=== PATIENT | female | born 1950 | race Caucasian/White ===

== ENCOUNTER 2018-09-12 05:23 | Inpatient (IN) ==
--- NOTE | 2018-08-24 13:38 | PAT Medication Instructions ---
Medication Instructions Date of Service August 24, 2018 Home Medications albuterol sulfate 2 puff INHALATION Q6H NEEDED aspirin [Aspir-81] 81 mg PO QPM lisinopril 10 mg PO BID rosuvastatin 20 mg PO HS ASK your surgeon for instructions aspirin [Aspir-81] 81 mg PO QPM DO NOT take the morning of surgery lisinopril 10 mg PO BID Take morning of surgery With a small sip of water, OTHERWISE NOTHING TO EAT OR DRINK AFTER MIDNIGHT: albuterol sulfate 2 puff INHALATION Q6H NEEDED (if needed; please bring to the hospital) Take evening before surgery albuterol sulfate 2 puff INHALATION Q6H NEEDED (if needed) lisinopril 10 mg PO BID rosuvastatin 20 mg PO HS Other Notes If you have any questions please call us at [phone] or [phone] or [phone] or [phone]
--- NOTE | 2018-08-24 13:39 | Anesthesiology Consultation ---
Date of Service August 24, 2018 Assessment & Plan (1) Encounter for pre-operative examination: - No previous anesthesia records Chart Review Chart Review: Acceptable Risk for Surgery and Patient seen in Pre Admission Testing Consults Requested cardiac (Dr. Rosario (08/23) - awaiting DSE and Echo to be scheduled) Patient was seen by cardiology and on 09/06 a letter was provided by Dr. Abraham martinez ndicating that patient is at low risk for surgery and cardiac monitoring is required for 2 hours postop. Beta blockers are to be continued during perioperative period. Teaching & Discussion Pre-Anesthesia Teaching/Discussion Notes: Instructed NPO after midnight before surgery, except medications with 15 cc of water. Medication instructions provi ded according to the PAT guidelines. History Surgery Operation Date: 09/12/18 07:15 Proposed Procedures p Right Carotid Endarterectomy - Sam Her MD Height/Weight Height: 5 ft 1 in Weight: 61.9 kg Allergies Allergy/AdvReac Type Severity Reaction Status Date / Time No Known Allergies Allergy Verified 08/22/18 14:16 Medications Home Medications Medication Instructions Recorded Confirmed Last Taken albuterol sulfate 2 puff INHALATION Q6H PRN 08/22/18 08/22/18 Unknown aspirin [Aspir-81] 81 mg PO QPM 08/22/18 08/22/18 Unknown lisinopril 10 mg PO BID 08/22/18 08/22/18 Unknown rosuvastatin 20 mg PO HS 08/22/18 08/22/18 Unknown Past Medical History Medical History Arthritis Asthma INHALER PRN Hyperlipidemia Hypertension Myocardial Infarction 1982 Exercise / Class Metabolic Activity II 4-5 Yardwork/Stairs/Walk up hill (Able to climb FOS several times per day. Housework. Denies CP or SOB. ) Past Family History Family History Mother Family history of esophageal cancer Past Surgical History Surgical History History of appendectomy Age 11 History of cardiac cath 1 STENT STENT 2016 AT [facility] History of colonoscopy Past Anesthesia History No Hx of Anesthesia Complications and No Family Hx of Anesthesia Complications History of PONV No Hx of PONV and No Hx of Motion Sickness Social History Smoking Status: Current every day smoker tobacco type: cigarettes Smoking cigarettes per day: 10 CIGS A DAY X 45+ YRS Do You Dip or Chew Tobacco: No Hx Alcohol Use: No Hx Substance Use: No Review of Systems Patient denies chest pain, shortness of breath, dyspnea on exertion, joint pain, reflux, cough, wheezing, palpitations. Physical Exam Vital Signs BP: 180/78 P: 57 R: 16 T: 98.1 SPO2: 97% on RA ENMT Mouth: + dentures (Full upper plate) and + poor dentition Thyromental Distance: > or= 3.5 Finger Breadths (3.5) Mallampati Class: II Neck normal visual inspection and trachea midline; neck extension not limited Respiratory normal respiratory effort Auscultation: lungs clear to auscultation bilaterally Cardiovascular Rate/Rhythm: regular rate and regular rhythm Heart Sounds: + murmur (2/6) Vessels: + carotid bruit Neurologic moves all extremities Psychiatric Orientation: alert and oriented x 3 Testing Laboratory Results 08/24/18 14:05 08/24/18 14:05 PT 11.0 Seconds (9.0-12.0) 08/24/18 14:05 INR 1.1 (0.9-1.1) 08/24/18 14:05 APTT 26.0 Seconds (21.0-31.0) 08/24/18 14:05 Blood Type A Positive 08/24/18 14:05 Antibody Screen NEGATIVE 08/24/18 14:05 Electrocardiogram Date: 08/23/18 Findings: + NSR @ (65) and + LBBB Marked high lateral repolarization disturbance secondary to LBBB. (Patient scheduled for Stress Test and ECHO) Chest X-Ray Date: 08/24/18 Findings: + NAD FINDINGS: Atherosclerosis of the aortic arch. Cardiac silhouette normal in size. Lungs and pleural spaces clear. Degenerative changes of the thoracic spine. Upper abdomen normal. IMPRESSION: 1. No acute cardiopulmonary disease. Echocardiogram Date: 09/03/18 EF: 55% Normal EF. There is mild to moderate concentric hypertrophy. Normal right ventricular size with normal function. Mildly dilated left atrium. Normal right atrium. Trileaflet aortic valve. There is no aortic regurgitation and moderate aortic stenosis. The aortic valve is calcified. There is mild mitral regurgitation. The mitral valve is thickened. There is trace tricuspid regurgitation. Normal PA pressure. There is physiologic pulmonic regurgitation. Normal aorta. Stress Test Date: 09/03/18 Type: nuclear (Lexiscan) Resting EF: 49% Breast attenuation shadow. Good quality study. Normal gated MPI, wall motion, and low normal EF. Small in size, mild intensity, fixed anterior MPI defect. Most suggestive of breast attenuation but a small anterior infarct cannot be excluded. No evidence of ischemia. Low risk study. Study is improved compared to prior study dated 07/24/15. Lexiscan stress ECG was uninterpretable for myocardial ischemia due to LBBB at baseline Nausea, headache noted during infusion. HTN at baseline. Cardiac Catheterization Date: 09/07/15 Findings: + normal Intervention: + none Summary: 1. Angiographically mild to moderate one vessel occlusive coronary artery disease 2. Patient stent in right coronary artery 3. Mildly reduced left ventricular systolic function 4. Normal LVEDP. Plan: Given present coronary anatomy patient should be managed medically aggressive lucina factor modification should be maintained and close clinical followup should be done. Pulmonary Function Test Date: 03/23/18 Findings: + FEV1 pre (1.72), + FEV1 post (1.80) and + DLCO (11.4) There is minimal obstructive lung defect. The airway obstruction is confirmed by the decrease in flow rate at peak flow and flow at 25%, 50%, and 75% of the flow volume curve. An obstructive lung defect is confirmed by an increased RV. There is a mild decrease in diffusing capacity. FEF 25-75 change by 22%. This is interpreted as a mild response to bronchodilator.
--- NOTE | 2018-08-24 14:49 | XRay Report ---
XR chest Pre-admission PA/Lat CLINICAL HISTORY: 67 years-old Female presenting with preoperative assessment. TECHNIQUE: PA and lateral views of the chest were obtained. COMPARISON: None. FINDINGS: Atherosclerosis of the aortic arch. Cardiac silhouette normal in size. Lungs and pleural spaces clear . Degenerative changes of the thoracic spine. Upper abdomen normal. IMPRESSION: 1. No acute cardiopulmonary disease. Electronically signed by: Rashad Waldrop M.D. 08/24/2018 2:48 PM
[2018-08-24 14:50] LABS: Basophils # (auto) 0.07 K/uL (0-0.2); Basophils % (auto) 0.7 %; Eosinophils # (auto) 0.47 K/uL (0-0.5); Hematocrit (blood only) 38.9 % (37-47); Hemoglobin 12.9 g/dL (12.0-16.0); Immature Granulocytes # (auto) 0.03 K/uL (0.00-0.02); Immature Granulocytes % (auto) 0.3 %; Lymphocytes # (auto) 2.41 K/uL (1.2-3.4); Lymphocytes % (auto) 25.5 %; Mean Corpuscular Hgb Conc 33.2 g/dL (32-36); Mean Corpuscular Volume 83.7 fL (80-100); Mean Platelet Volume 10.9 fL (7.4-10.4); Monocytes # (auto) 0.54 K/uL (0.11-0.59); Monocytes % (auto) 5.7 %; Neutrophils # (auto) 5.93 K/uL (1.4-6.5); Neutrophils % (auto) 62.8 %; Platelet Count 245 K/uL (130-400); RDW Coefficient of Variation 15.1 % (11.5-14.5); RDW Standard Deviation 46.4 fL (36.4-46.3); Red Blood Count 4.65 M/uL (4.2-5.4); White Blood Count 9.45 K/uL (4.8-10.8)
[2018-08-24 14:57] LABS: BUN Creatinine Ratio 16.5 (10-20); Calcium 9.3 mg/dl (8.5-10.1); Creatinine Clr Calc Pharmacy 67.7 ml/min; Est GFR (African American) 105.1; Est GFR (Non-African American) 90.7; Potassium 4.3 mmol/L (3.5-5.1)
[2018-08-24 15:05] LABS: INR 1.1 (0.9-1.1)
[2018-09-12] MEDS ORDERED: SODIUM CHLORIDE 0.9% 1000ML 1,000 ML IV SCH (06:00)
[2018-09-12] MEDS ORDERED: SODIUM CHLORIDE 0.9% 1000ML IV SCH (06:00)
[2018-09-12] MEDS ORDERED: LR 15ML/HR IV SCH (06:00)
--- NOTE | 2018-09-12 06:17 | History & Physical Report ---
Date of Service September 12, 2018 Assessment & Plan (1) Stenosis of right internal carotid artery: Patient is admitted for a right carotid endarterectomy. I have discussed the risks options and benefits of the procedure with the patient. The patient understands the risks options and benefits and agrees to the procedure. History of Present Illness Chief Complaint: Right internal carotid artery stenosis Primary Care Provider: Kaleb Miller Ms. Link is a very pleasant, 67-year-old female who presented to your office with bilateral carotid bruits that have been asymptomatic. She underwent a bilateral carotid ultrasound, which showed stenosis of greater than 70% and left-sided carotid stenosis between 50 and 70%. At this point, she has been otherwise asymptomatic and denies any symptoms of memory loss, trouble with her speech, bilateral extremity weakness or unilateral extremity weakness, and no changes in her vision. She has had no balance issues or dizziness and has no unexplained headaches that have been happening recently. She states that she has otherwise been able to perform all her activities of daily life without limi tation and she is able to walk up a flight of stairs and throughout the grocery store without any claudication symptoms or leg pain. She describes no rest pain or tingling sensation in her legs at baseline. . Her CTA does verify 90% stenosis of her right internal carotid artery and 60-70% stenosis of her left. Allergies Allergy/AdvReac Type Severity Reaction Status Date / Time No Known Allergies Allergy Verified 09/12/18 05:45 Home Medications Home Medications Medication Instructions Recorded Confirmed Type albuterol sulfate 2 puff INHALATION Q6H PRN 08/22/18 09/12/18 History aspirin [Aspir-81] 81 mg PO QPM 08/22/18 09/12/18 History lisinopril 10 mg PO BID 08/22/18 09/12/18 History rosuvastatin 20 mg PO HS 08/22/18 09/12/18 History Past Med/Surg History Medical History Arthritis Asthma INHALER PRN Hyperlipidemia Hypertension Myocardial Infarction 1981 Surgical History History of cardiac cath 1 STENT STENT 2016 AT [facility] History of colonoscopy History of appendectomy Age 11 Family History Mother Family history of esophageal cancer Social History Preferred Language: French Communication Ability: Effective Signing Teacher Required: No Beliefs That Will Affect Care: None Current Living Situation: Family Other Information That Helps Us Care for You: No Feels Safe at Home: Yes Safety Concerns: Feels Safe At This Time Smoking Status: Current every day smoker Tobacco Type: cigarettes ; Cigarettes Per Day: 10 CIGS A DAY X 45+ YRS ; Do You Dip or Chew Tobacco: No ; Second Hand Exposure: Yes (FAMILY SMOKES) ; Hx Alcohol Use: No Hx Substance Use: No Review of Systems All systems reviewed & are unremarkable except as noted in HPI & below Physical Exam Physical Exam: Her mucous membranes are moist. Her sclerae was anicteric. Her cranial nerves 2-12 are diffusely normal. Her trachea was midline. She had no adenopathy in her anterior and posterior cervical chain. She had bilateral carotid bruits with the left being more easily appreciated on auscultation than the right. She had 2/6, crescendo-decrescendo without any extra sounds or rubs. Her heart had a regular rate and rhythm. Her lungs are clear to auscultation bilaterally without any wheezes. Her abdomen was soft, nondistended, nontender with any pulsatile abdominal masses. Her femoral pulses were 2+ bilaterally and she has 2+ DP and PT pulses easily appreciated on exam. Feet were without any ulcerations or wounds. She was diffusely neuromuscularly intact. Her behavior was appropriate for the examination. Results & Data Vital Signs (Past 12 Hours) Vital Signs Temp Pulse Resp BP Pulse Ox 09/12/18 05:52 36.7 C 59 L 18 199/87 H 97
[2018-09-12 06:32] LABS: BUN Creatinine Ratio 27.3 (10-20); Calcium 8.6 mg/dl (8.5-10.1); Creatinine Clr Calc Pharmacy 76.2 ml/min; Est GFR (African American) 109.5; Est GFR (Non-African American) 94.5; Potassium 3.7 mmol/L (3.5-5.1)
[2018-09-12] MEDS ORDERED: ROCURONIUM BROMIDE 10 MG/ML 5 ML VIAL ONE ×2 (06:43→09:24)
[2018-09-12] MEDS ORDERED: PROPOFOL IV EMULSION 10 MG/ML 20 ML VIAL IV ONE ×2 (06:43→07:55)
[2018-09-12] MEDS ORDERED: PHENYLEPHRINE HCL 10 MG/ML VIAL ONE (06:43)
[2018-09-12] MEDS ORDERED: LIDOCAINE HCL 2% 2 ML VIAL/AMP(20MG/ML) INFIL ONE (06:43)
[2018-09-12] MEDS ORDERED: NEOSTIGMINE METHYLSULFATE 5 MG/5 ML SYR ONE (06:44)
[2018-09-12] MEDS ORDERED: fentaNYL citrate 100 MCG/2 ML VIAL ONE ×4 (06:44→10:53)
[2018-09-12] MEDS ORDERED: MIDAZOLAM HCL 1 MG/ML 2ML VIAL ONE (06:44)
[2018-09-12] MEDS ORDERED: HEPARIN SOD (PORCINE) 1000 UNIT/ML 10 ML VIAL ONE (06:44)
[2018-09-12] MEDS ORDERED: GLYCOPYRROLATE 0.2 MG/ML VIAL ONE (06:44)
[2018-09-12] MEDS ORDERED: LIDOCAINE HCL 1% 20 ML VIAL ONE (06:56)
[2018-09-12] MEDS ORDERED: BUPIVACAINE/EPINEPHRINE 0.5% MPF 1:200,000 30 ML VIAL ONE (06:56)
[2018-09-12] MEDS ORDERED: HEPARIN (PORCINE) 1000 UNIT/ML 10 ML (CATH LAB USE ONLY) ONE (06:56)
[2018-09-12] MEDS ORDERED: CEFAZOLIN 250 MG/ML 1 GM VIAL ONE (06:57)
[2018-09-12] MEDS ORDERED: GELATIN SPONGE SZ 100 ONE (06:57)
[2018-09-12] MEDS ORDERED: THROMBIN FOR SOLN 20000 UNIT KIT ONE (06:57)
--- NOTE | 2018-09-12 07:10 | History & Physical Bridge Note ---
Date of Service September 12, 2018 History & Physical Bridge Note I have examined the patient, reviewed the History & Physical and in the interval since the performance of the History & Physical I have noted the following changes of clinical significance: no changes noted
[2018-09-12] MEDS ORDERED: ATROPINE SULFATE 0.1 MG/ML 10ML SYR IV PRN (07:27)
[2018-09-12] MEDS ORDERED: PHENYLEPHRINE 100MCG/ML 5ML SYR IV PRN (07:27)
[2018-09-12] MEDS ORDERED: fentaNYL citrate 100 MCG/2 ML VIAL IV PRN (07:27)
[2018-09-12] MEDS ORDERED: HYDROmorphone INJ 1 MG/ML SYRINGE IV PRN (07:27)
[2018-09-12] MEDS ORDERED: ONDANSETRON INJ 2 MG/ML 2 ML VIAL IV PRN ×3 (07:27→16:40)
[2018-09-12] MEDS ORDERED: MEPERIDINE HCL 25 MG/ML CARP IV PRN (07:27)
[2018-09-12] MEDS ORDERED: LABETALOL HCL IV 5 MG/ML 20ML IV PRN (07:27)
[2018-09-12] MEDS ORDERED: ePHEDrine sulfate 50 MG/ML AMP IV PRN (07:27)
[2018-09-12] MEDS: CEFAZOLIN 1000MG 1,000 MG/7.5 ML SYR IV SCH ×3 (07:29→15:23)
[2018-09-12] MEDS ORDERED: ONDANSETRON INJ 2 MG/ML 2 ML VIAL ONE (07:55)
--- NOTE | 2018-09-12 10:47 | Post Operative Brief Note ---
Immediate Post Op Note v1 Date of Surgery September 12, 2018 Pre & Post Diagnosis Operation Date: 09/12/18 07:30 Pre-Op Diagnosis: Right Internal Carotid Artery Stenosis Post-Op Diagnosis: Right Internal Carotid Artery Stenosis Procedure Operation Date: 09/12/18 07:30 Actual Procedures p Right Carotid Endarterectomy(Right) - Sam Her MD Surgeon Sam Her MD Manufacturing Management Associate MD Jacquelyn L.Minarchick,PAC Estimated Blood Loss 50 Findings Consistent with Post-Op Diagnosis Anesthesia Type General Complications none Disposition Accompanied Patient To Recovery: No Disposition: Recovery Room
[2018-09-12] MEDS ORDERED: ESMOLOL HCL INJ 10 MG/ML 10ML VIAL IV ONE (11:15)
--- NOTE | 2018-09-12 11:17 | Operative Report ---
Post Operative Report Pre & Post Diagnosis Operation Date: 09/12/18 07:30 Pre-Op Diagnosis: Right Internal Carotid Artery Stenosis Post-Op Diagnosis: Right Internal Carotid Artery Stenosis Procedure Operation Date: 09/12/18 07:30 Actual Procedures p Right Carotid Endarterectomy(Right) - Sam Her MD Surgeon Sam Her MD Jumpbasting Canvas Baster MD Jacquelyn LArturoMinarchick,PAC Estimated Blood Loss 50 Findings Consistent with Post-Op Diagnosis Fluids 1 L Specimens Right carotid endarterectomy plaque Drains none Anesthesia Type General Complications none Disposition Accompanied Patient To Recovery: No Disposition: Recovery Room Indications Carotid artery stenosis Description of Procedure The patient was taken to the operating room and placed in supine position. After general anesthesia was accomplished the right-side of the neck was prepped and draped in a sterile manner. The patient was identified and a timeout performed. A longitudinal neck incision was then made coursing along the medial border of the sternocleidomastoid muscle. The incision was taken down through the platysmal layer. The facial vein was identified, ligated, and divided. The common carotid artery was then seen. It was dissected free down to the omohyoid muscle. The dissection was carried upward until the external carotid artery and superior thyroid artery were seen. The external carotid was actually located medially, while the internal carotid was located laterally. Branches of the external were crossing over the internal carotid more proximally than usual anatomy, making an anterior approach to the artery quite difficult. The superior thyroid artery crossed the proximal internal carotid, this it was ligated and divided with 2-0 silk suture. The external carotid was slung with a red rubber vessel loop and retracted even more medially so that the posterior aspect of the internal carotid could be accessed. Next the dissection was carried up along the internal carotid artery. This was carried upward to beyond the area of narrowing. The hypoglossal nerve was seen and preserved. The patient was heparinized. After adequate heparinization was accomplished, the internal, external, and common carotid arteries were clamped. A longitudinal arteriotomy was started on the common carotid artery, more posteromedially, and extended upward along the internal carotid artery, also posteromedially, to a point beyond the area of narrowing. There was calcified plaque of the internal carotid artery origin causing approximately 85-90% narrowing. A Doppler shunt was then placed in the internal, followed by the common carotid artery and held in place with Marcelo clamps. There was good back bleeding seen from the internal carotid artery. The endarterectomy was then started in the appropriate plane on the common carotid artery. This was carried upward and the external carotid was everted and endarterectomized. The endarterectomy was then carried up along the internal carotid artery till a nice feathering breakoff point was accomplished beyond the end of the plaque. The endarterectomy was then carried down further on the common carotid artery. At end of the arteriotomy, the plaque was then transected. Under loop magnification, all loose debris and flaps were removed. There is no distal flap seen at the end of the endarterectomy site. The arteriotomy then closed using a bovine pericardial patch and a running 6-0 prolene suture. This was done in the usual vascular fashion. Prior to completing the closure, the doppler shunt was removed and the internal and common carotid arteries were reclamped. Backbleeding and forward bleeding was allowed to occur. The flow surface was irrigated with heparinized saline. The final few sutures were then placed and securely tied. Clamps were then removed off the external and common carotid arteries. The clamp was then removed the internal carotid artery. Good distal flow was seen. Adequate hemostasis was seen of the patch. The wound was inspected and adequate hemostasis was obtained. The wound was irrigated with antibiotic solution. It was then closed with a running 3-0 Vicryl suture for the platysmal layer and a 4-0 subcuticular Vicryl suture for the skin edges. Dermabond was used for dressing. The patient left the operating room in satisfactory condition and tolerated the procedure well. Dr. Her was present and scrubbed for the entire procedure. I attest to the content of the Intraoperative Record and any orders documented therein. Any exceptions are noted below.
--- NOTE | 2018-09-12 12:04 | Anesthesiology Progress Note ---
Date of Service September 12, 2018 Anesthesia Post Procedure Vital Signs Vital Signs: Temp Pulse Pulse Resp BP BP Pulse Ox 09/12/18 11:50 64 18 183/73 H 187/74 H 99 09/12/18 11:40 67 18 194/79 H 199/76 H 98 09/12/18 11:30 60 19 204/77 H 193/73 H 99 09/12/18 11:21 36.2 C L 84 19 193/78 H 100 09/12/18 05:52 36.7 C 59 L 18 199/87 H 97 Transfer of Care Handoff Completed per policy Notes Mental Status: alert / awake / arousable Patient Amnestic to Procedure: Yes Nausea / Vomiting: adequately controlled Pain: adequately controlled Airway Patency, RR, SpO2: stable & adequate BP & HR: stable & adequate Hydration State: stable & adequate Anesthetic Complications: no major complications apparent and Pt Satisfied with anesthetic care Notes: The patient is awake and comfortable. She is able to speak clearly at her baseline and move all extremities. The patient was hypertensive preoperatively with SBP in the 200s. Her BP was managed in the OR. Postoperative SBP was in the 200s. She was treated with esmolol and labetalol to bring her SBP below [address] Hre prefers it to be. HR is in the 60s. The patient will go to ICU for monitoring. Sign out was given to the ICU team.
[2018-09-12] MEDS ORDERED: ALBUTEROL HFA 8 GM INHALER INH PRN (12:55)
[2018-09-12] MEDS: LACTATED RINGER'S 1,000 ML IV SCH ×2 (13:12→19:24)
[2018-09-12] MEDS: LISINOPRIL 10 MG TAB PO SCH ×2 (13:12→20:26)
[2018-09-12] MEDS: MoRPHine SULFATE 4 MG/ML 1 ML CARP\\VIAL IV PRN ×5 (13:12→23:09)
--- NOTE | 2018-09-12 13:50 | Critical Care Consultation ---
Date of Consultation September 12, 2018 Assessment & Plan (1) Postop carotid endarterectomy surveillance, encounter for: No operative complications; now in ICU for post-op surviellance. Neuro checks q4h per protocol cardiac monitoring supplemental O2 as needed wound care per protocol Heart healthy diet IVF Lactated ringers at 125mL/hr okay to resume home ASA tonight okay to resume Crestor 20mg PO HS tonight Morphine 1-4mg q2H PRN IV Zofran 4mg IV PRN x1 Percocet 5mg/325mg 1 tab PO q4H tab for pain 3-4; 2 tab for 5-6 pain; no more than 3250mg of acetaminophen in 24 hour period received standard operative Ancef IV for ppx infection DVT PPx: SCDs (2) Stenosis of right internal carotid artery: extensive calification and approx 80% stenosis seen on Neck CTA from review of records on 08/16/28 treated with operative intervention via right internal carotid endarterectomy (3) Hypertension: okay to continue with home lisinopril 20mg PO HS will monitor BP with vitals Supervising Physician Co-Signing Physician Notes Patient seen and examined at bedside. Chart reviewed. Discussed with DAVID and bedside nurse. Briefly the patient is a 67-year-old female with a history of hypertension. She was found to have carotid stenosis and was taken for right carotid endarterectomy today. She was noted to be profoundly hypertensive pr eoperatively and postoperatively. She was brought to the ICU for monitoring. She is been extubated and is swallowing fine. The patient's blood pressure may be suboptimally controlled in the outpatient setting. We will continue her lisinopril. Blood pressure goals have been communicated to the nursing staff per vascular surgery to maintain blood pressures between 150 and 180. We will add as needed hydralazine to maintain these goals and use Norvasc orally. Postoperative care per vascular surgery. We are happy to assist with additional management of this patient as needed and will follow her during her ICU course. Feel free to contact us with additional questions or concerns. History of Present Illness Reason for Consultation: Carotid Endarterectomy Post-op Surveillance Requesting Physician: Sam Her MD Attending Physician: Sam Her MD History of Present Illness Sera Link is a 67 y/o female who presents to [facility] ICU for Right Carotid Endart erectomy Post-op Surveillance. She had right internal carotid endarterectomy performed without complications. Currently, she has no acute complaints, no shortness of breath, chest pain, acute numbness/weakness. Her past medical history is significant for HTN, lumbar and cervical spine degenerative disc disease, left hip pain. Allergies Allergy/AdvReac Type Severity Reaction Status Date / Time No Known Allergies Allergy Verified 09/12/18 05:45 Home Medications Home Medications Medication Instructions Recorded Confirmed Type albuterol sulfate 2 puff INHALATION Q6H PRN 08/22/18 09/12/18 History aspirin [Aspir-81] 81 mg PO QPM 08/22/18 09/12/18 History lisinopril 10 mg PO BID 08/22/18 09/12/18 History rosuvastatin 20 mg PO HS 08/22/18 09/12/18 History Patient History Medical History Arthritis Asthma INHALER PRN Hyperlipidemia Hypertension Myocardial Infarction 1981 Surgical History History of cardiac cath 1 STENT STENT 2016 AT [facility] History of colonoscopy History of appendectomy Age 11 Family History Mother Family history of esophageal cancer Social History Preferred Language: Divehi Communication Ability: Effective Soaker Soda Worker Required: No Beliefs That Will Affect Care: None Current Living Situation: Family Other Information That Helps Us Care for You: No Feels Safe at Home: Yes Safety Concerns: Feels Safe At This Time Smoking Status: Current every day smoker Tobacco Type: cigarettes ; Cigarettes Per Day: 10 CIGS A DAY X 45+ YRS ; Do You Dip or Chew Tobacco: No ; Second Hand Exposure: Yes (FAMILY SMOKES) ; Hx Alcohol Use: No Hx Substance Use: No Review of Systems Review of Systems: All systems reviewed & are unremarkable except as noted in HPI & below Physical Exam Constitutional: WD/WN, vitals as above comfortable ENMT: Mouth: no lip abnormality and no oropharynx abnormality Neck: normal visual inspection and trachea midline Cardiovascular: Rate/Rhythm: regular rate and regular rhythm Extremities: no pedal edema Gastrointestinal (Abdomen): Inspection/Auscultation: normal bowel sounds Percussion/Palpation: abdomen soft; abdomen nontender Musculoskeletal: Head/Neck/Chest: normocephalic and head atraumatic right anterior lateral neck surgical wound with intact sutures and no current signs of infection Skin: no rashes, warm and dry Neurologic: moves all extremities Psychiatric: A+Ox3, euthymic affect Results & Data Vital Signs (Past 12 Hours) Vital Signs Temp Pulse Pulse Pulse Resp BP BP 09/12/18 13:00 64 17 167/65 H 09/12/18 12:50 63 16 09/12/18 12:36 36.5 C 66 18 161/66 H 09/12/18 12:20 59 L 17 174/62 H 09/12/18 12:10 64 18 182/71 H 09/12/18 12:00 36.4 C L 65 17 167/73 H 09/12/18 11:50 64 18 183/73 H 09/12/18 11:40 67 18 194/79 H 09/12/18 11:30 60 19 204/77 H 09/12/18 11:21 36.2 C L 84 19 09/12/18 05:52 36.7 C 59 L 18 BP Pulse Ox 09/12/18 13:00 95 09/12/18 12:50 93 09/12/18 12:36 95 09/12/18 12:20 179/68 H 99 09/12/18 12:10 184/70 H 100 09/12/18 12:00 188/73 H 99 09/12/18 11:50 187/74 H 99 09/12/18 11:40 199/76 H 98 09/12/18 11:30 193/73 H 99 09/12/18 11:21 193/78 H 100 09/12/18 05:52 199/87 H 97 PG Care Time/CCT Total # of Minutes Spent Total Time Spent with Patient: Total time spent is greater than 50% in coordination of care (as documented) at patient's floor/unit and/or counseling patient: Resident Activity Tracking Resident Involvement: Resident Care Provided Care Provided: Adult Hospital Medicine (ICU)
[2018-09-12] MEDS: OXYCODONE/ACETAMINOPHEN 5mg/325mg TAB PO PRN (14:51)
[2018-09-12] MEDS ORDERED: AMLODIPINE BESYLATE 5 MG TAB PO ONE (15:13)
[2018-09-12] MEDS ORDERED: HydrALAZINE HCL 20 MG/ML VIAL ONE (15:18)
[2018-09-12] MEDS: HydrALAZINE HCL 20 MG/ML VIAL IV PRN ×3 (15:21→22:11)
[2018-09-12] MEDS: ROSUVASTATIN CALCIUM 20 MG TAB PO SCH (20:26)
[2018-09-12] MEDS: ASPIRIN 81 MG ECTAB PO SCH (20:27)
[2018-09-13] MEDS: CEFAZOLIN 1000MG 1,000 MG/7.5 ML SYR IV SCH (00:01)
[2018-09-13] MEDS ORDERED: LABETALOL HCL IV 5 MG/ML 20ML IV ONE ×2 (01:25→01:32)
[2018-09-13] MEDS ORDERED: LABETALOL HCL IV 5 MG/ML 20ML IV PRN (03:00)
[2018-09-13] MEDS: HydrALAZINE HCL 20 MG/ML VIAL IV PRN (03:05)
[2018-09-13] MEDS: LACTATED RINGER'S 1,000 ML IV SCH ×3 (03:39→19:41)
[2018-09-13 04:36] LABS: Basophils # (auto) 0.01 K/uL (0-0.2); Basophils % (auto) 0.1 %; Eosinophils # (auto) 0.01 K/uL (0-0.5); Eosinophils % (auto) 0.1 %; Hematocrit (blood only) 35.4 % (37-47); Hemoglobin 11.3 g/dL (12.0-16.0); Immature Granulocytes # (auto) 0.03 K/uL (0.00-0.02); Immature Granulocytes % (auto) 0.3 %; Lymphocytes # (auto) 1.08 K/uL (1.2-3.4); Lymphocytes % (auto) 9.3 %; Mean Corpuscular Hgb Conc 31.9 g/dL (32-36); Mean Corpuscular Volume 85.5 fL (80-100); Mean Platelet Volume 10.7 fL (7.4-10.4); Monocytes # (auto) 0.94 K/uL (0.11-0.59); Monocytes % (auto) 8.1 %; Neutrophils % (auto) 82.1 %; Platelet Count 210 K/uL (130-400); RDW Coefficient of Variation 15.3 % (11.5-14.5); RDW Standard Deviation 48.3 fL (36.4-46.3); Red Blood Count 4.14 M/uL (4.2-5.4); White Blood Count 11.57 K/uL (4.8-10.8)
[2018-09-13] MEDS ORDERED: LORazepam 0.5 MG/1 ML VIAL IV STA (05:26)
--- NOTE | 2018-09-13 07:14 | Critical Care Progress Note ---
Date of Service September 13, 2018 Assessment & Plan (1) Postop carotid endarterectomy surveillance, encounter for: No operative complications; now in ICU for post-op surviellance. Neuro checks q4h per protocol cardiac monitoring supplemental O2 as needed wound care per protocol Heart healthy diet IVF Lactated ringers at 125mL/hr okay to resume home ASA tonight okay to resume Crestor 20mg PO HS tonight Morphine 1-4mg q2H PRN IV Zofran 4mg IV PRN x1 Percocet 5mg/325mg 1 tab PO q4H tab for pain 3-4; 2 tab for 5-6 pain; no more than 3250mg of acetaminophen in 24 hour period received standard operative Ancef IV for ppx infection Pull Tami this AM. Stable to transfer out of ICU. DVT PPx: SCDs (2) Stenosis of right internal carotid artery: extensive calification and approx 80% stenosis seen on Neck CTA from review of records on 08/16/28 treated with operative intervention via right internal carotid endarterectomy (3) Hypertension: okay to continue with home lisinopril 20mg PO HS will monitor BP with vitals Hydralazine 10mg IV q4h PRN was provided after having elevated systolic values yesterday in the 180s. Still hypertensive systolic values this AM >150. Will treat with Lopressor 25mg PO BID. Supervising Physician Co-Signing Physician Notes Patient seen and examined. I was intimately involved in the patient's care overnight with multiple phone calls. Patient is postop day 1 carotid endarterectomy. Overnight she had issues with increasing blood pressure requiring parenteral agents. She had some nausea and vomiting and difficulty keeping oral agents down. She is better this morning. She did receive a low-dose of Ativan overnight to control her nausea and emesis. We will plan on initiating beta-ravi in the form of metoprolol. Continue Norvasc and lisinopril. Additional postsurgical management per vascular surgery. The patient appears appropriate to transfer to the ICU from a pulmonary critical care perspective. Defer additional management to vascular surgery. Will sign off on the patient leaves the ICU. Feel free to contact us with additional questions or concerns. Subjective She did have some elevated systolic values overnight treated with PRN hydralazine; she did also have some nausea yesterday with vomiting that has improved. She was unable to keep anti-HTN meds down yesterday from vomiting. Still having some pain to incision site but this resolved with PRN analgesics. No issues with swallowing. No complaints of focal weakness/numbness. Review of Systems Review of Systems: All systems reviewed & are unremarkable except as noted in HPI & below Physical Exam Constitutional: WD/WN, vitals as above comfortable ENMT: Mouth: no lip abnormality and no oropharynx abnormality Neck: trachea midline right anterior lateral neck incision site with hematoma resolving, no signs of infection, sutures intact. Cardiovascular: Rate/Rhythm: regular rate and regular rhythm Extremities: n o pedal edema Gastrointestinal (Abdomen): Inspection/Auscultation: normal bowel sounds Percussion/Palpation: abdomen soft; abdomen nontender Musculoskeletal: Head/Neck/Chest: normocephalic and head atraumatic Skin: no rashes, warm and dry Neurologic: moves all extremities Psychiatric: A+Ox3, euthymic affect Results & Data Vital Signs (Past 12 Hours) Vital Signs Temp Pulse Resp BP Pulse Ox 09/13/18 06:30 81 13 92 09/13/18 06:00 74 16 136/59 L 95 09/13/18 05:30 73 16 89 L 09/13/18 05:15 97 H 25 H 95 09/13/18 05:00 85 18 163/72 H 95 09/13/18 04:45 88 17 96 09/13/18 04:30 88 16 95 09/13/18 04:00 82 16 150/59 H 95 09/13/18 03:30 90 22 95 09/13/18 03:00 78 17 179/77 H 93 09/13/18 02:30 75 13 91 09/13/18 02:00 69 16 146/64 H 95 09/13/18 01:30 86 17 92 09/13/18 01:00 84 15 176/68 H 96 09/13/18 00:30 83 17 96 09/13/18 00:01 86 16 167/68 H 96 09/13/18 00:00 37.3 C 86 16 95 09/12/18 23:30 94 H 20 09/12/18 23:00 84 22 156/62 H 97 09/12/18 22:30 79 21 98 09/12/18 22:01 76 18 170/67 H 97 09/12/18 21:30 69 17 99 09/12/18 21:00 68 15 144/57 H 96 09/12/18 20:30 77 16 97 09/12/18 20:00 72 14 162/67 H 98 09/12/18 19:42 78 PG Care Time/CCT Total # of Minutes Spent Total Time Spent with Patient: Total time spent is greater than 50% in coordination of care (as documented) at patient's floor/unit and/or counseling patient: Resident Activity Tracking Resident Involvement: Resident Care Provided Care Provided: Adult Hospital Medicine (ICU)
[2018-09-13] MEDS: LISINOPRIL 10 MG TAB PO SCH ×2 (08:56→20:44)
[2018-09-13] MEDS: AMLODIPINE BESYLATE 5 MG TAB PO SCH (08:56)
[2018-09-13] MEDS: METOPROLOL TARTRATE 25 MG TAB PO SCH ×2 (08:56→20:44)
--- NOTE | 2018-09-13 09:24 | Anesthesiology Progress Note ---
Date of Service September 13, 2018 Anesthesia Post Procedure Vital Signs Vital Signs: Temp Pulse Pulse Resp BP BP BP 09/13/18 06:30 81 13 09/13/18 06:00 74 16 136/59 L 09/13/18 05:30 73 16 09/13/18 05:15 97 H 25 H 09/13/18 05:00 85 18 163/72 H 09/13/18 04:45 88 17 09/13/18 04:30 88 16 09/13/18 04:00 82 16 150/59 H 09/13/18 03:30 90 22 09/13/18 03:00 78 17 179/77 H 09/13/18 02:30 75 13 09/13/18 02:00 69 16 146/64 H 09/13/18 01:30 86 17 09/13/18 01:00 84 15 176/68 H 09/13/18 00:30 83 17 09/13/18 00:01 86 16 167/68 H 09/13/18 00:00 37.3 C 86 16 09/12/18 23:30 94 H 20 09/12/18 23:00 84 22 156/62 H 09/12/18 22:30 79 21 09/12/18 22:01 76 18 170/67 H 09/12/18 21:30 69 17 09/12/18 21:00 68 15 144/57 H 09/12/18 20:30 77 16 09/12/18 20:00 72 14 162/67 H 09/12/18 19:42 78 09/12/18 19:00 36.7 C 71 13 146/55 H 09/12/18 18:37 70 14 09/12/18 18:21 69 17 141/61 H 09/12/18 17:30 64 14 165/66 H 09/12/18 17:00 67 20 169/71 H 09/12/18 16:19 67 18 177/73 H 09/12/18 15:40 66 19 09/12/18 15:38 172/59 H 09/12/18 15:30 36.5 C 69 20 09/12/18 15:00 58 L 15 173/93 H 09/12/18 14:45 60 16 183/69 H 09/12/18 14:30 58 L 14 09/12/18 14:00 58 L 14 160/65 H 09/12/18 13:30 58 L 13 09/12/18 13:00 64 17 167/65 H 09/12/18 12:50 63 16 09/12/18 12:36 36.5 C 66 18 161/66 H 09/12/18 12:20 59 L 17 174/62 H 179/68 H 09/12/18 12:10 64 18 182/71 H 184/70 H 09/12/18 12:00 36.4 C L 65 17 167/73 H 188/73 H 09/12/18 11:50 64 18 183/73 H 187/74 H 09/12/18 11:40 67 18 194/79 H 199/76 H 09/12/18 11:30 60 19 204/77 H 193/73 H 09/12/18 11:21 36.2 C L 84 19 193/78 H Pulse Ox 09/13/18 06:30 92 09/13/18 06:00 95 09/13/18 05:30 89 L 09/13/18 05:15 95 09/13/18 05:00 95 09/13/18 04:45 96 09/13/18 04:30 95 09/13/18 04:00 95 09/13/18 03:30 95 09/13/18 03:00 93 09/13/18 02:30 91 09/13/18 02:00 95 09/13/18 01:30 92 09/13/18 01:00 96 09/13/18 00:30 96 09/13/18 00:01 96 09/13/18 00:00 95 09/12/18 23:30 09/12/18 23:00 97 09/12/18 22:30 98 09/12/18 22:01 97 09/12/18 21:30 99 09/12/18 21:00 96 09/12/18 20:30 97 09/12/18 20:00 98 09/12/18 19:42 09/12/18 19:00 97 09/12/18 18:37 96 09/12/18 18:21 95 09/12/18 17:30 97 09/12/18 17:00 96 09/12/18 16:19 96 09/12/18 15:40 96 09/12/18 15:38 09/12/18 15:30 98 09/12/18 15:00 96 09/12/18 14:45 96 09/12/18 14:30 96 09/12/18 14:00 95 09/12/18 13:30 95 09/12/18 13:00 95 09/12/18 12:50 93 09/12/18 12:36 95 09/12/18 12:20 99 09/12/18 12:10 100 09/12/18 12:00 99 09/12/18 11:50 99 09/12/18 11:40 98 09/12/18 11:30 99 09/12/18 11:21 100 Pain Intensity Right Neck: Pain Intensity: 3 Notes Mental Status: alert / awake / arousable and participated in evaluation Nausea / Vomiting: improving with treatment Pain: adequately controlled Airway Patency, RR, SpO2: stable & adequate BP & HR: stable & adequate Hydration State: stable & adequate
[2018-09-13] MEDS ORDERED: COUGH DROP (SUGAR FREE) LOZ 24 LOZ/1 BOX BUCCAL PRN (11:40)
--- NOTE | 2018-09-13 13:12 | Surgery Progress Note ---
Date of Service September 13, 2018 Assessment & Plan (1) Stenosis of right internal carotid artery: Patient POD 1 from CEA. Doing well. Will transfer to floor. Possible d/c tomorrow. Subjective Patient feeling better. Slight hoarseness. Did take oral without problems. Denies any neuro deficits. She was hypertensive during the night. Physical Exam Constitutional: WD/WN, vitals as above Skin: + wound (clean and dry) Neurologic: normal touch/pain/proprioception and moves all extremities; no focal motor deficits very mild tongue deviation. Improved since last PM Psychiatric: A+Ox3, euthymic affect Results & Data Vital Signs (Past 12 Hours) Vital Signs Temp Pulse Resp BP Pulse Ox 09/13/18 10:00 74 15 170/74 H 96 09/13/18 09:00 79 13 177/74 H 95 09/13/18 08:00 36.7 C 74 20 164/61 H 95 09/13/18 07:00 85 17 93 09/13/18 06:30 81 13 92 09/13/18 06:00 74 16 136/59 L 95 09/13/18 05:30 73 16 89 L 09/13/18 05:15 97 H 25 H 95 09/13/18 05:00 85 18 163/72 H 95 09/13/18 04:45 88 17 96 09/13/18 04:30 88 16 95 09/13/18 04:00 82 16 150/59 H 95 09/13/18 03:30 90 22 95 09/13/18 03:00 78 17 179/77 H 93 09/13/18 02:30 75 13 91 09/13/18 02:00 69 16 146/64 H 95 09/13/18 01:30 86 17 92
[2018-09-13] MEDS ORDERED: OXYCODONE/ACETAMINOPHEN 5mg/325mg TAB ONE (18:23)
[2018-09-13] MEDS: OXYCODONE/ACETAMINOPHEN 5mg/325mg TAB PO PRN (18:23)
[2018-09-13] MEDS: ROSUVASTATIN CALCIUM 20 MG TAB PO SCH (20:44)
[2018-09-13] MEDS: ASPIRIN 81 MG ECTAB PO SCH (20:44)
[2018-09-14] MEDS: LACTATED RINGER'S 1,000 ML IV SCH (05:51)
[2018-09-14] MEDS: HydrALAZINE HCL 20 MG/ML VIAL IV PRN (07:59)
[2018-09-14] MEDS: AMLODIPINE BESYLATE 5 MG TAB PO SCH (08:01)
[2018-09-14] MEDS: LISINOPRIL 10 MG TAB PO SCH (08:01)
[2018-09-14] MEDS: METOPROLOL TARTRATE 25 MG TAB PO SCH (08:02)
--- NOTE | 2018-09-14 13:08 | Surgery Progress Note ---
Date of Service September 14, 2018 Assessment & Plan (1) Stenosis of right internal carotid artery: Pt is now s/p R CEA. Doing well. Will d/c home today with plans for pt to follow up in office in 2 weeks. Also recommended pt f/u with PCP next week d/t HTN, they express understanding. Present on Admission?: Yes Subjective 67 yo f with hx of HTN, POD# 2 after R CEA, seen in f/u today. Pt admits fa tigue and R neck discomfort and swelling, states is improving. No other new complaints. Review of Systems Review of Systems: All systems reviewed & are unremarkable except as noted in HPI & below Physical Exam Constitutional: WD/WN, vitals as above Neck: trachea midline R neck incision C/D/I wtih dermabond, + local tenderness and small hematoma. Mild ecchymosis Respiratory: normal respiratory effort, lungs clear to auscultation Cardiovascular: RRR, no murmur, no edema Gastrointestinal (Abdomen): normal bowel sounds, soft, nontender, no hepatosplenomegaly Musculoskeletal: Extremities: strength 5/5 throughout Neurologic: moves all extremities; no focal motor deficits and not confused Speech / Cognition: normal speech, no expressive aphasia and no receptive aphasia Cranial Nerves: EOM intact bilaterally, normal facial strength and tongue midline Results & Data Vital Signs (Past 12 Hours) Vital Signs Temp Pulse Resp BP Pulse Ox 09/14/18 08:41 128/72 09/14/18 07:37 37.1 C 71 18 178/70 H 94
--- NOTE | 2018-09-14 13:09 | Discharge Summary ---
Date of Service September 14, 2018 Admission HPI Per Admitting Provider Ms. Link is a very pleasant, 67-year-old female who presented to your office with bilateral carotid bruits that have been asymptomatic. She underwent a bilateral carotid ultrasound, which showed stenosis of greater than 70% and left-sided carotid stenosis between 50 and 70%. At this point, she has been otherwise asymptomatic and denies any symptoms of memory loss, trouble with her speech, bilateral extremity weakness or unilateral extremity weakness, and no changes in her vision. She has had no balance issues or dizziness and has no unexplained headaches that have been happening recently. She states that she has otherwise been able to perform all her activities of daily life without limitation and she is able to walk up a flight of stairs and throughout the grocery store without any claudication symptoms or leg pain. She describes no rest pain or tingling sensation in her legs at baseline. . Her CTA does verify 90% stenosis of her right internal carotid artery and 60-70% stenosis of her left. Admission Exam Per Admitting Provider Her mucous membranes are moist. Her sclerae was anicteric. Her cranial nerves 2-12 are diffusely normal. Her trachea was midline. She had no adenopathy in her anterior and posterior cervical chain. She had bilateral carotid bruits with the left being more easily appreciated on auscultation than the right. She had 2/6, crescendo-decrescendo without any extra sounds or rubs. Her heart had a regular rate and rhythm. Her lungs are clear to auscultation bilaterally without any wheezes. Her abdomen was soft, nondistended, nontender with any pulsatile abdominal masses. Her femoral pulses were 2+ bilaterally and she has 2+ DP and PT pulses easily appreciated on exam. Feet were without any ulcerations or wounds. She was diffusely neuromuscularly intact. Her behavior was appropriate for the examination. Principal Diagnosis 1. s/p R CEA 2. R ICA stenosis Discharge Exam Constitutional WD/WN, vitals as above Neck trachea midline Respiratory normal respiratory effort, lungs clear to auscultation Cardiovascular RRR, no murmur, no edema Gastrointestinal (Abdomen) normal bowel sounds, soft, nontender, no hepatosplenomegaly Musculoskeletal Extremities: strength 5/5 throughout Neurologic moves all extremities; no focal motor deficits and not confused Speech / Cognition: normal speech, no expressive aphasia and no receptive aphasia Cranial Nerves: EOM intact bilaterally, normal facial strength and tongue midline Discharge Data Allergies Allergy/AdvReac Type Severity Reaction Status Date / Time No Known Allergies Allergy Verified 09/12/18 05:45 Consultations 09/12/18 07:11 Consult Wheel Press Clerk Routine Procedures Performed Operation Date: 09/12/18 07:30 Actual Procedures p Right Carotid Endarterectomy(Right) - Sam Her MD Hospital Course (1) Stenosis of right internal carotid artery: Pt is now s/p R CEA. Doing well. Per Dr Her, will d/c home today with plans for pt to follow up in office in 2 weeks. Also recommended pt f/u with PCP next week d/t HTN, they express understanding. Total Time Total Time Spent Total Time Spent (In Minutes): 10 minutes Total Time Includes: Examination of the Patient, Discharge Planning and Medication Reconciliation Discharge Plan Discharge Items Patient Disposition: Home - Self-Care Reason For Visit: Right Internal Carotid Artery Stenosis Discharge Diagnosis: 1. s/p R Carotid Endarterectomy 2. Right Carotid Stenosis Condition: Good Discharge Goals: Therapeutic intervention Activity: Per 'Additional Instructions' section Lifting Comment: No lifting more than 10 lbs x 1 week Bathing Comment: May shower, no soaking. Sexual Activity: When tolerated Exercise/Sports: Gradually increase as tolerated Driving/Machine Use Comment: No driving x 1 week Non-emergency contact: Primary Care Provider and Surgeon Call non-emergency contact if: you have any medication questions, your pain is not controlled, your temperature is above 101, your wound has increased redness and your wound has increased drainage Follow-up/Referrals: Kaleb Miller [Primary Care Provider] - (Next week) Monika Irving PA-C [Physician [facility] Specialist] - (Will need follow up appt with Dr Her or Monika Irving PA-C, in 2 weeks. ) Diet: Heart Healthy Addtl Provider Instructions: SPECIAL CARE INSTRUCTIONS: Medications: * Continue to take Aspirin as directed. Incision Care: * You may shower, but do not rub incision. You may let the warm soapy water run over it. Be sure to dry the incision well after bathing. * Do not shave directly over the incision until it is healed. * DO NOT IMMERSE THE INCISION IN A TUB/POOL/etc. UNTIL HEALED. Restrictions: * Do not drive for at least one week or if you are still taking any narcotic pain medication. * Do not lift anything heavier than a gallon of milk for one week after going home. Possible Complications: * Numbness - It is normal to have some numbness around the incision. Numbness can extend beyond the incision to areas of the neck, ear and face. The numbness is due to bruising of nerves during the surgery and will gradually improve over a period of months. * Hoarseness/Difficulty Speaking and Swallowing - The bruising of nerves in the neck can also cause a hoarse voice, difficulty speaking or swallowing. This may improve over time, HOWEVER, if it continues for more than a few days please contact our office ([phone]). * Excessive Swelling - There will be some swelling immediately after surgery which usually resolves within one week. If you notice that the swelling is getting worse, notify your surgeon ([phone]). * Drainage/Bleeding - If there is any drainage or bleeding, it should be a very small amount (less than a teaspoon per day). If you have excessive bleeding or drainage from the incision, call your surgeon ([phone]) right away. ACTIVATION OF EMERGENCY MEDICAL SYSTEM: Call 911, immediately, if you experience any of the following: Warning Signs and Symptoms of Stroke: * Sudden numbness or weakness of the face, arm or leg, especially on one side of the body * Sudden confusion, trouble speaking or understanding * Sudden trouble seeing in one or both eyes * Sudden trouble walking, dizziness, loss of balance or coordination * Sudden severe headache with no cause Do not delay calling 911 if you experience any warning signs or symptoms of a stroke. Delay in seeking medical attention may affect what treatments can be given to you. Risk Factors for Stroke: You can reduce your chances of stroke by working with your medical provider to adopt a healthy lifestyle. Some specific ways to lower your chance of stroke are: * If you are a smoker, now is the time to stop smoking cigarettes * If you are diabetic, improve the control of your blood sugars * Avoid excessive amounts of alcohol * Control high blood pressure * Lose weight if you are overweight * Be sure to lead an active lifestyle * Eat a healthy diet low in salt, cholesterol and fat You should know about other risk factors for stroke that you are unable to control. These include: * Age 55 years or older * Male gender * Certain racial groups: , or / * Family History of Stroke, Mini stroke or Heart Attack * Sickle Cell Disease You will be receiving a call from the Vascular Surgery Nurse after you are discharged. FOLLOW UP VISIT: It is important for you to keep your follow up appointments with your medical provider. Keep any scheduled doctor appointments. Prescriptions: New oxycodone-acetaminophen [Percocet] 5-325 mg Tablet 1 tab PO Q4H PRN (Reason: Pain) Qty: 30 RF: 0 Continued aspirin [Aspir-81] 81 mg Tablet,Delayed Release (Dr/Ec) 81 mg PO QPM RF: 0 lisinopril 10 mg Tablet 10 mg PO BID RF: 0 rosuvastatin 20 mg Tablet 20 mg PO HS RF: 0 albuterol sulfate 90 mcg/actuation Hfa Aerosol Inhaler 2 puff INHALATION Q6H PRN (Reason: Wheezing) RF: 0 Stand-Alone Forms: [facility] Discharge Orders: Discharge Order (Routine); Ordered 09/14/18 Ordered By: Monika Irving Admission Data Admit Date/Time: 09/12/18 07:10 Attending Provider: Sam Her Admit Provider: Sam Her Primary Care Provider: Kaleb Miller Other Providers: Blanco Castillo Service: Surgical Services
== END 2018-09-14 14:21 | disposition home or self-care (01) | DRG 39 ==
LOC: ASU 05:23 → 1E 07:10 → 3W 09-13 14:03